=== PATIENT | female | born 1935 ===

== ENCOUNTER 2022-01-05 18:30 | Inpatient (IN) ==
[2022-01-06 00:37] LABS: ABS Basophils 0.1 10^3/ul (0-0.2); ABS Eosinophils 0.1 10^3/ul (0-0.6); ABS Lymphocytes 0.9 10^3/ul (1.0-4.8); ABS Monocytes 0.7 10^3/ul (0-0.8); ABS Neutrophils 5.5 10^3/ul (1.5-7.7); Eosinophil % 0.7 %; Hematocrit 40 % (35-47); Lymphocyte % 12.5 %; Mean Corpuscular HGB Conc 32 g/dL (31-36); Mean Corpuscular Hemoglobin 26 pg (27-31); Mean Corpuscular Volume 80 fL (80-97); Mean Platelet Volume 9.2 fL (7.4-10.4); Nucleated Red Blood Cells % 0.1; Platelet Count 247 10^3/uL (150-450); Red Blood Count 5.03 10^6 /uL (3.70-4.87); Red Cell Distribution Width 16 % (10-15); White Blood Count 7.3 10^3/uL (3.5-10.8)
[2022-01-06 00:47] LABS: INR 1.1 (0.89-1.11)
[2022-01-06 01:02] LABS: Albumin 3.8 g/dL (3.2-5.2); Albumin/Globulin Ratio 1.2 (1-3); Calcium 9.2 mg/dL (8.6-10.3); Globulin 3.2 g/dL (2-4); Potassium 4.6 mmol/L (3.5-5.0); Total Bilirubin 0.6 mg/dL (0.2-1.0); eGFR CKD-EPI 81.9 (>60)
[2022-01-06 01:03] LABS: Urine Appearance Cloudy; Urine Bilirubin Negative (Negative); Urine Blood 1+ (Negative); Urine Color Yellow; Urine Glucose Negative (Negative); Urine Ketones Negative (Negative); Urine Nitrite Positive (Negative); Urine Protein Negative (Negative); Urine Specific Gravity 1.013 (1.002-1.030); Urine Urobilinogen Negative (Negative)
[2022-01-06 01:05] LABS: Urine Bacteria 3+ (Absent); Urine Red Blood Cell 1+(3-5/hpf) (Absent); Urine Squamous Epithelial Cell Present (Absent); Urine White Blood Cell 3+(>20/hpf) (Absent)
[2022-01-06 01:55] LABS: High Sensitivity Troponin 1 Hr 146 pg/mL (<15)
[2022-01-06] MEDS ORDERED: Furosemide 40 mg/4 ml IV VIAL IV ONE (02:11)
[2022-01-06] MEDS ORDERED: cefTRIAXone 1 gm/50 mL D5W 1 GM/50 ML BAG IV ONE (02:20)
[2022-01-06] MEDS ORDERED: Heparin DRIP 25,000 UNITS BAG 25,000 UNITS/500 ML BAG IV SCH (02:30)
[2022-01-06] MEDS: Heparin 5000 UNITS/ML 1 mL VIAL IV SCH ×2 (03:02→09:59)
[2022-01-06 06:27] LABS: Blood Urea Nitrogen 13 mg/dL (6-24); CO2 Carbon Dioxide 25 mmol/L (22-32); Calcium 7.9 mg/dL (8.6-10.3); Chloride 103 mmol/L (101-111); Cholesterol 139 mg/dL; Glucose 99 mg/dL (70-100); HDL Cholesterol 52.7 mg/dL; LDL Cholesterol 78 mg/dL; Magnesium 1.7 mg/dL (1.9-2.7); Sodium 138 mmol/L (135-145); Total Iron Binding Capacity 311 mcg/dL (250-450); Transferrin 222 mg/dL (203-362); Triglycerides 41 mg/dL
[2022-01-06 06:37] LABS: TSH Ultra Thyroid Stim Horm 1.57 mcIU/mL (0.34-5.60)
[2022-01-06 06:40] LABS: Anion Gap 10 mmol/L (2-11)
[2022-01-06 06:43] LABS: Ferritin 25.7 ng/mL (11-307)
[2022-01-06 08:01] LABS: Potassium Redraw 4.1 mmol/L (3.5-5.0)
[2022-01-06] MEDS ORDERED: Magnesium Sulfate IV 3 GM in NS 0.9% 100 ml BAG 100 ML IVPB ONE (08:30)
[2022-01-06] MEDS: Furosemide 40 mg/4 ml IV VIAL IV SCH (09:22)
[2022-01-06] MEDS ORDERED: Iohexol 350 (CONTRAST) 500 ML MDV IV ONE (16:41)
[2022-01-07] MEDS ORDERED: Calcium Carb (TUMS) 500 mg CHEW TAB PO PRN (04:16)
[2022-01-07] MEDS: cefTRIAXone 1 gm/50 mL D5W 1 GM/50 ML BAG IV SCH (05:20)
[2022-01-07 06:48] LABS: Hematocrit 31 % (35-47); Hemoglobin 10.4 g/dL (12.0-16.0); Mean Corpuscular HGB Conc 33 g/dL (31-36); Mean Corpuscular Hemoglobin 26 pg (27-31); Mean Corpuscular Volume 79 fL (80-97); Mean Platelet Volume 8.8 fL (7.4-10.4); Platelet Count 194 10^3/uL (150-450); Red Blood Count 3.96 10^6 /uL (3.70-4.87); Red Cell Distribution Width 15 % (10-15); White Blood Count 7.5 10^3/uL (3.5-10.8)
[2022-01-07 07:07] LABS: Potassium 3.8 mmol/L (3.5-5.0); eGFR CKD-EPI 73.3 (>60)
[2022-01-07] MEDS ORDERED: Potassium Chlor 20 meq TAB.ER PO ONE (08:50)
[2022-01-07] MEDS: Furosemide 40 mg/4 ml IV VIAL IV SCH (08:54)
[2022-01-08] MEDS: cefTRIAXone 1 gm/50 mL D5W 1 GM/50 ML BAG IV SCH (03:28)
[2022-01-08 06:40] LABS: Hematocrit 37 % (35-47); Hemoglobin 12.1 g/dL (12.0-16.0); Mean Corpuscular HGB Conc 33 g/dL (31-36); Mean Corpuscular Hemoglobin 26 pg (27-31); Mean Corpuscular Volume 80 fL (80-97); Mean Platelet Volume 9.1 fL (7.4-10.4); Platelet Count 212 10^3/uL (150-450); Red Blood Count 4.61 10^6 /uL (3.70-4.87); Red Cell Distribution Width 15 % (10-15)
[2022-01-08 07:06] LABS: Calcium 8.3 mg/dL (8.6-10.3); Magnesium 1.8 mg/dL (1.9-2.7); Potassium 4.4 mmol/L (3.5-5.0)
[2022-01-08] MEDS ORDERED: Magnesium Sulfate 2 gm BAG 2 GM/50 ML BAG IVPB ONE (08:04)
[2022-01-09] MEDS: cefTRIAXone 1 gm/50 mL D5W 1 GM/50 ML BAG IV SCH (04:15)
[2022-01-09 06:40] LABS: Magnesium 1.9 mg/dL (1.9-2.7); Potassium 4.4 mmol/L (3.5-5.0); eGFR CKD-EPI 88.6 (>60)
[2022-01-09] MEDS ORDERED: Furosemide 20 mg/2 ml IV VIAL IV ONE (09:45)
[2022-01-10 06:49] LABS: Hematocrit 35 % (35-47); Hemoglobin 11.4 g/dL (12.0-16.0); Mean Corpuscular HGB Conc 32 g/dL (31-36); Mean Corpuscular Hemoglobin 26 pg (27-31); Mean Corpuscular Volume 80 fL (80-97); Mean Platelet Volume 8.9 fL (7.4-10.4); Platelet Count 235 10^3/uL (150-450); Red Blood Count 4.44 10^6 /uL (3.70-4.87); Red Cell Distribution Width 15 % (10-15); White Blood Count 6.9 10^3/uL (3.5-10.8)
[2022-01-10 07:14] LABS: Calcium 8.3 mg/dL (8.6-10.3); Magnesium 1.9 mg/dL (1.9-2.7); Potassium 4.4 mmol/L (3.5-5.0); eGFR CKD-EPI 85.6 (>60)
[2022-01-10] MEDS ORDERED: Regadenoson 0.4 MG/5 ML SYRINGE ONE (09:52)
[2022-01-11 10:54] LABS: Ferritin 37.5 ng/mL (11-307)
[2022-01-11] MEDS ORDERED: Furosemide 20 mg/2 ml IV VIAL IV ONE (12:00)
[2022-01-11 16:41] LABS: Calcium 8.2 mg/dL (8.6-10.3); Magnesium 1.8 mg/dL (1.9-2.7); Potassium 4.2 mmol/L (3.5-5.0)
[2022-01-11 16:47] LABS: eGFR CKD-EPI 81.9 (>60)
[2022-01-11] MEDS ORDERED: Magnesium Sulfate 2 gm BAG 2 GM/50 ML BAG IVPB ONE (18:00)
[2022-01-12 06:39] LABS: ABS Eosinophils 0.1 10^3/ul (0-0.6); ABS Monocytes 0.7 10^3/ul (0-0.8); ABS Neutrophils 4.7 10^3/ul (1.5-7.7); Hematocrit 35 % (35-47); Hemoglobin 11.1 g/dL (12.0-16.0); Lymphocyte % 15.5 %; Mean Corpuscular HGB Conc 32 g/dL (31-36); Mean Corpuscular Hemoglobin 26 pg (27-31); Mean Corpuscular Volume 80 fL (80-97); Mean Platelet Volume 8.8 fL (7.4-10.4); Platelet Count 243 10^3/uL (150-450); Red Blood Count 4.33 10^6 /uL (3.70-4.87); Red Cell Distribution Width 15 % (10-15); White Blood Count 6.6 10^3/uL (3.5-10.8)
[2022-01-12 06:57] LABS: Calcium 8.3 mg/dL (8.6-10.3); Magnesium 2.1 mg/dL (1.9-2.7); Potassium 4.1 mmol/L (3.5-5.0); eGFR CKD-EPI 86.9 (>60)
[2022-01-12 11:30] VITALS: BP 95/56
== END 2022-01-12 16:00 | disposition home or self-care (01) | DRG 292 ==
LOC: ED 18:30 → EDHOLD 01-06 03:43 → SUATTDRO 01-06 03:43 → EDHOLD 01-06 12:47 → MEDTELE 01-06 13:16
PROVIDERS: ADMIT Student in an Organized Health Care Education/Training Program; ATTEND Internal Medicine